=== PATIENT | male | born 1955 | race Two or more races ===

== ENCOUNTER → 2024-12-20 | Outpatient (BNVA) | payer MEDICARE, MEDICAID, SELFPAY | END | disposition home or self-care (01) | PROVIDERS: PCP Nurse Practitioner Family; Referring Provider Nurse Practitioner Family; Visit Provider Nurse Practitioner Family | DX: Z23 Encounter for immunization (principal); Z76.89 Persons encountering health services in other specified circumstances; I10 Essential (primary) hypertension; E66.9 Obesity, unspecified; Z68.35 Body mass index [BMI] 35.0-35.9, adult; F32.1 Major depressive disorder, single episode, moderate; F41.9 Anxiety disorder, unspecified; G47.00 Insomnia, unspecified; F40.9 Phobic anxiety disorder, unspecified; Z12.11 Encounter for screening for malignant neoplasm of colon; Z12.5 Encounter for screening for malignant neoplasm of prostate; Z01.83 Encounter for blood typing | CPT/HCPCS: 90471; 90677; 99205; J90677 ==

== ENCOUNTER → 2025-01-03 | Outpatient (BNVA) | payer MEDICARE, MEDICAID, SELFPAY | END | disposition home or self-care (01) | PROVIDERS: PCP Nurse Practitioner Family; Referring Provider Nurse Practitioner Family; Visit Provider Nurse Practitioner Family | DX: Z71.2 Person consulting for explanation of examination or test findings (principal); E11.69 Type 2 diabetes mellitus with other specified complication; E78.5 Hyperlipidemia, unspecified; I10 Essential (primary) hypertension; E55.9 Vitamin D deficiency, unspecified; R79.9 Abnormal finding of blood chemistry, unspecified; B35.1 Tinea unguium | CPT/HCPCS: 99214 ==

== ENCOUNTER → 2025-01-15 | Outpatient (BNVA) | payer MEDICARE, MEDICAID, SELFPAY | END | disposition home or self-care (01) | PROVIDERS: PCP Nurse Practitioner Family; Referring Provider Nurse Practitioner Family; Visit Provider Nurse Practitioner Family | DX: Z00.01 Encounter for general adult medical examination with abnormal findings (principal); M25.562 Pain in left knee; M25.561 Pain in right knee; Z13.220 Encounter for screening for lipoid disorders; E11.9 Type 2 diabetes mellitus without complications; F41.9 Anxiety disorder, unspecified; E78.5 Hyperlipidemia, unspecified; I10 Essential (primary) hypertension; Z68.34 Body mass index [BMI] 34.0-34.9, adult; R07.89 Other chest pain; Z13.820 Encounter for screening for osteoporosis; K02.9 Dental caries, unspecified | CPT/HCPCS: 93005; 99215 ==

== ENCOUNTER → 2025-01-18 | Outpatient (CLI) | payer MEDICARE, MEDICAID, SELFPAY ==
--- NOTE | 2025-01-18 09:58 | XR_ITS ---
Examination: Scoliosis survey 2, views. Technique: AP standing thoracic, AP standing lumbar spine, two views. Exam date and time: January 18, 2025 1013 hours INDICATIONS: Scoliosis date dictated on clinical examination by physician last month, spine stiffness 5 years FINDINGS: Lower thoracic dextroscoliosis 10 degrees Lumbar levoscoliosis 10 degrees No vertebral body fracture Moderate vertebral body spondylosis IMPRESSION: Scoliosis as above
--- NOTE | 2025-01-18 09:58 | XR_ITS ---
Examination: Hand, right 2 views Technique: Hand AP, lateral 2 views Date and time of exam: January 18, 2025 1013 hours INDICATIONS: Stiffness right fifth digit 6 months FINDINGS: Mild osteopenia Moderate narrowing fifth metacarpal phalangeal joint Mild to moderate osteoarthritis distal interphalangeal joint fifth digit No fracture IMPRESSION: Osteoarthritis fifth digit as above
--- NOTE | 2025-01-18 09:58 | XR_ITS ---
Examination: Knee bilateral, 6 views Technique: Knee AP, lateral, oblique each knee total 6 views Date and time of exam: January 18, 2025 1013 hours INDICATIONS: Bilateral knee pain 3 years. FINDINGS: Moderate osteopenia. Bilateral advanced tricompartment osteoarthritis, most severe involving the medial joint spaces No fractures IMPRESSION: Bilateral advanced tricompartment osteoarthritis
== END | disposition home or self-care (01) ==
PROVIDERS: PCP Nurse Practitioner Family; Referring Provider Nurse Practitioner Family; Visit Provider Nurse Practitioner Family
DX: Z13.828 Encounter for screening for other musculoskeletal disorder (principal); M19.041 Primary osteoarthritis, right hand; M17.0 Bilateral primary osteoarthritis of knee; M41.84 Other forms of scoliosis, thoracic region; M41.86 Other forms of scoliosis, lumbar region
CPT/HCPCS: 72082; 73120; 73562

== ENCOUNTER → 2025-01-29 | Outpatient (BNVA) | payer MEDICARE, MEDICAID, SELFPAY | END | disposition home or self-care (01) | PROVIDERS: PCP Nurse Practitioner Family; Referring Provider Nurse Practitioner Family; Visit Provider Nurse Practitioner Family | DX: Z71.2 Person consulting for explanation of examination or test findings (principal); M17.0 Bilateral primary osteoarthritis of knee; M41.9 Scoliosis, unspecified | CPT/HCPCS: 99213 ==

== ENCOUNTER → 2025-02-12 | Outpatient (BNVA) | payer MEDICARE, MEDICAID, SELFPAY | END | disposition home or self-care (01) | PROVIDERS: PCP Nurse Practitioner Family; Referring Provider Nurse Practitioner Family; Visit Provider Nurse Practitioner Family | DX: F32.1 Major depressive disorder, single episode, moderate (principal); F41.9 Anxiety disorder, unspecified; Z09 Encounter for follow-up examination after completed treatment for conditions other than malignant neoplasm | CPT/HCPCS: 99213 ==

== ENCOUNTER → 2025-04-05 | Outpatient (BNVA) | payer MEDICARE, MEDICAID, SELFPAY | END | disposition home or self-care (01) | PROVIDERS: PCP Nurse Practitioner Family; Referring Provider Nurse Practitioner Family; Visit Provider Nurse Practitioner Family | DX: E55.9 Vitamin D deficiency, unspecified (principal); E78.5 Hyperlipidemia, unspecified; I10 Essential (primary) hypertension; E11.9 Type 2 diabetes mellitus without complications; F32.9 Major depressive disorder, single episode, unspecified | CPT/HCPCS: 99213 ==